=== PATIENT | female | born 1985 | race Caucasian/White ===

== ENCOUNTER 2023-07-10 20:43 | Emergency (ER) | payer MEDICAID, OTHER ==
[~2023-07-10] VITALS: Ht 170.2 cm; Wt 100.0 kg
[~2023-07-10 20:43] MED LIST: ALBU6.7H14 INH
[2023-07-10 20:56] VITALS: BP 112/71; PULSE 83; RESP 16; TEMP 98; O2SAT 97
== END 2023-07-10 21:50 | disposition home or self-care (01) ==
LOC: ER 20:44
DX: F11.20 Opioid dependence, uncomplicated (principal); J45.909 Unspecified asthma, uncomplicated; Z79.899 Other long term (current) drug therapy
CPT/HCPCS: 99281